=== PATIENT | female | born 1925 | race Caucasian/White ===

== ENCOUNTER 2017-01-03 07:13 | Emergency (ER) | payer MEDICARE, BC ==
[~2017-01-03 07:13] MED LIST: ASPIRIN EC81 MG PO; CALCIUM 600 +1 EACH PO; CHONDROITIN SU250 MG PO; FISH OIL 1,0001 EAC1 PO; GLUCOSAMINE1000 MG PO; MACUVITE WITH1 EACH PO; MOTRIN IB200 MG PO; MUCINEX600 MG PO; NORCO 5-325 TA1 EACH PO; OMEGA-31000 MG PO; OMEPRAZOLE20 MG PO; ONE-A-DAY ESSE1 EACH PO; VITAMIN D5000 UNIT PO
[2017-01-03] MEDS ORDERED: LEVOTHYROXINE75 MCG PO (07:33)
[2017-01-03] MEDS ORDERED: CIPRO500 MG PO (08:04)
== END 2017-01-03 08:21 | disposition home or self-care (01) ==
LOC: ED 07:13
DX: N39.0 Urinary tract infection, site not specified (principal); Z90.11 Acquired absence of right breast and nipple; Z79.82 Long term (current) use of aspirin; Z79.899 Other long term (current) drug therapy
CPT/HCPCS: 81001; 87077; 87088; 87186; 99283